=== PATIENT | male | born 1980 | race Two or more races ===

== ENCOUNTER 2017-08-31 15:09 | Emergency (ER) | payer OTHER ==
[2017-08-31] MEDS ORDERED: ACETAMINOPHEN 325 MG TABLET PO ONE (15:18)
[2017-08-31] MEDS ORDERED: MORPHINE SULFATE 10 MG/ML INJ IV ONE (15:39)
--- NOTE | 2017-08-31 15:44 | RADIOLOGY REPORT (SQ) ---
EXAM DESCRIPTION: KNEE LEFT 2 VIEWS COMPLETED DATE/TIME: 08/31/2017 3:35 pm REASON FOR STUDY: positive deformity COMPARISON: None. NUMBER OF VIEWS: Two views. TECHNIQUE: AP and lateral radiographic images acquired of the left knee. LIMITATIONS: None. FINDINGS: MINERALIZATION: Normal. BONES: No acute fracture or dislocation. No worrisome bone lesions. JOINT: No effusion. SOFT TISSUES: No soft tissue swelling. No radio-opaque foreign body. OTHER: No other significant finding. IMPRESSION: NEGATIVE STUDY OF THE LEFT KNEE. NO RADIOGRAPHIC EVIDENCE OF ACUTE INJURY. TECHNICAL DOCUMENTATION: JOB ID: [id number] [employer]- All Rights Reserved Reading location - IP/workstation name: [email or web address]
[2017-08-31] MEDS ORDERED: HYDROMORPHONE HCL INJ/PF 2 MG/ML AMPULE IV ONE (15:46)
--- NOTE | 2017-08-31 15:47 | RADIOLOGY REPORT (SQ) ---
EXAM DESCRIPTION: ANKLE LEFT COMPLETE COMPLETED DATE/TIME: 08/31/2017 3:35 pm REASON FOR STUDY: positive deformity COMPARISON: None. NUMBER OF VIEWS: Three views. TECHNIQUE: AP, lateral, and oblique radiographic images acquired of the left ankle. LIMITATIONS: None. FINDINGS: MINERALIZATION: Normal. BONES: There is a displaced fracture of the distal fibula above the level of the tibiotalar joint spa ce. Sequela of old trauma about the medial malleolus. JOINTS: There is marked widening of the medial tibiotalar clear space as well as subjective widening of the superior tibiotalar joint space. SOFT TISSUES: Soft tissue swelling about the medial and lateral malleolus. OTHER: No other significant finding. IMPRESSION: Jay C fracture of the distal fibula with marked widening of the medial tibiotalar con r space TECHNICAL DOCUMENTATION: JOB ID: [id number] [employer]- All Rights Reserved Reading location - IP/workstation name: [email or web address]
--- NOTE | 2017-08-31 15:52 | ER Document Report ---
ED Extremity Problem, Lower - General Mode of Arrival: Wheelchair Information source: Patient TRAVEL OUTSIDE OF THE [place] IN LAST 30 DAYS: No <MARLENA BALDWIN - Last Filed: 08/31/17 21:40> <JOSE DE JESUS PADRON - Last Filed: 08/31/17 23:35> - General Chief Complaint: Ankle Injury Stated Complaint: LT FOOT INJURY Time Seen by Provider: 08/31/17 15:31 Notes: Patient is a 36-year-old male who presents to the emergency department today with complaints of left ankle pain. Patient states he was playing soccer and he attempted to "stop the ball with his foot" and he lost his balance falling backwards with his leg caught behind him, eventually sitting on his ankle. Patient has been unable to bear weight on the ankle secondary to pain. (MARLENA BALDWIN) - Related Data Allergies/Adverse Reactions: No Known Allergies Allergy (Unverified 08/31/17 15:12) Past Medical History - General Information source: Patient - Social History Smoking Status: Never Smoker Cigarette use (# per day): No Frequency of alcohol use: None Drug Abuse: None Lives with: Family Family History: Reviewed & Not Pertinent - Medical History Medical History: Negative Surgical Hx: Negative <MARLENA BALDWIN - Last Filed: 08/31/17 21:40> Review of Systems - Review of Systems Constitutional: No symptoms reported EENT: No symptoms reported Cardiovascular: No symptoms reported Respiratory: No symptoms reported Gastrointestinal: No symptoms reported Genitourinary: No symptoms reported Male Genitourinary: No symptoms reported Musculoskeletal: See HPI, Joint pain - left ankle pain, Joint swelling, Deformity Skin: No symptoms reported Hematologic/Lymphatic: No symptoms reported Neurological/Psychological: No symptoms reported -: Yes All other systems reviewed and negative <MARLENA BALDWIN - Last Filed: 08/31/17 21:40> Physical Exam <MARLENA BALDWIN - Last Filed: 08/31/17 21:40> <JOSE DE JESUS PADRON - Last Filed: 08/31/17 23:35> - Vital signs Vitals: Temp Pulse Resp BP Pulse Ox 97.6 F 94 20 120/94 H 100 08/31/17 15:15 08/31/17 15:15 08/31/17 15:15 08/31/17 15:15 08/31/17 15:15 - Notes Notes: PHYSICAL EXAM GENERAL: Alert, interacts well. No acute distress. HEAD: Normocephalic, atraumatic. EYES: Pupils equal, round, and reactive to light. Extraocular movements intact. Mallampati score of 2. ENT: Oral mucosa moist, tongue midline. NECK: Full range of motion. Supple. Trachea midline. LUNGS: Clear to auscultation bilaterally, no wheezes, rales, or rhonchi. No respiratory distress. HEART: Regular rate and rhythm. No murmurs, gallops, or rubs. ABDOMEN: Soft, non-distended. EXTREMITIES: Left foot is cool to the touch, swollen, purple and ecchymotic. Left ankle is tender with palpation. 2+ dorsalis pedis pulses distally, normal sensation distally. NEUROLOGICAL: Alert and oriented x3. Normal speech. PSYCH: Normal affect, normal mood. SKIN: See extremity exam (MARLENA BALDWIN) Course <MARLENA BALDWIN - Last Filed: 08/31/17 21:40> <JOSE DE JESUS PADRON - Last Filed: 08/31/17 23:35> - Re-evaluation Re-evalutation: 08/31/17 18:49 Knee x-rays negative for acute fracture, ankle x-ray shows Jay C fracture of the distal fibula with marked widening of the medial tibiotalar clear space. Prior to reduction the left ankle was still swollen but is now warm, red, well perfused, no evidence of cyanosis. I did attempt to reduce this, there was some reduction but not complete reduction, they were placed in a stirrup splint and a posterior short leg splint , discussed with Dr. Bernal who states that this is an unstable fracture that will need surgery. Recommended making sure there is no tenting of the skin ( there is not) and have him follow-up with the patient first thing Friday morning. Patient is aware of this plan, will be given prescription for Percocet to take until he can see the orthopedic surgeon. Discharged home. 08/31/17 23:34 (JOSE DE JESUS PADRON) - Vital Signs Vital signs: Temp Pulse Resp BP Pulse Ox 97.6 F 76 14 119/75 100 08/31/17 15:15 08/31/17 17:00 08/31/17 19:00 08/31/17 18:31 08/31/17 19:00 Procedures - Conscious Sedation Conscious sedation Time started: 16:44 Time completed: 16:59 Consent obtained: Yes Indication: Left ankle fracture Last meal: 12:00 Prior complications: General anesthesia - Woke up during nose surgery. Pt with a mild systemic disease.: P2. - ASA Classification. Airway Evaluation: Normal anatomy Mallampati Classification: Class 2 Used during procedure: Suction available, IV access obtained, Pulse ox on pt., awake overnight monitor on pt. Medications administered: Diprivan Reversal agents: None I personally performed/intraservice time: Sedation, Procedure, 30 min or less Complications: No - Immobilization Left Ankle Pre-Proc Neuro Vasc Exam: Normal Immobilizer type: Ankle stirrup, Short Leg Posterior Performed by: Provider, PCT Post-Proc Neuro Vasc Exam: Normal, Unchanged from pre-exam Alignment checked and good: No - Alignment checked, interval reduction but not perfect. - Joint Reduction/Fracture Care Left Ankle Time completed: 16:59 Consent obtained: Yes Conscious sedation: Yes Pre-procedure NV exam: Yes Fracture: Closed Manipulation comment: Placed in stirrup and short leg posterior splint, Post-procedure NV exam: Yes - Fracture partially reduced but not completely. Reduction attempts: 1 Complications: No <JOSE DE JESUS PADRON - Last Filed: 08/31/17 23:35> Discharge <MARLENA BALDWIN - Last Filed: 08/31/17 21:40> <JOSE DE JESUS PADRON - Last Filed: 08/31/17 23:35> - Discharge Clinical Impression: Closed fracture of left distal fibula Qualifiers: Encounter type: initial encounter Fracture morphology: unspecified fracture morphology Qualified Code(s): S82.832A - Other fracture of upper and lower end of left fibula, initial encounter for closed fracture Condition: Stable Disposition: HOME, SELF-CARE Additional Instructions: Your left ankle is broken, specifically you have broken your left distal fibula. This fracture is unstable, it will likely need surgery. Please call Dr. Bernal's office first thing Friday in the morning, he says he will see you first thing Friday. Do not eat prior to going to his office. Stop eating at midnight. If your toes lose or change color, you lose feeling in your toes or the pain worsen significantly please loosen the splint, if this does not improve her symptoms please return to the emergency department. Prescriptions: Oxycodone HCl/Acetaminophen [Percocet 5-325 mg Tablet] 1 - 2 tab PO Q4H PRN #25 tablet PRN Reason: Referrals: ALINA BERNAL MD [ACTIVE STAFF] - 09/02/17 8:00 am Scribe Attestation: 08/31/17 23:35 I personally performed the services described in the documentation, reviewed and edited the documentation which was dictated to the scribe in my presence, and it accurately records my words and actions. (JOSE DE JESUS PADRON) Scribe Documentation - Scribe Written by Jatinder:: Jatinder Cancino, [id number] acting as scribe for :: Chriss <MARLENA BALDWIN - Last Filed: 08/31/17 21:40>
[2017-08-31] MEDS ORDERED: PROPOFOL INJ 200 MG/20 ML VIAL IV ONE (15:58)
[2017-08-31] MEDS ORDERED: ONDANSETRON HCL INJ/PF 4 MG/2 ML SDV IV ONE (17:32)
--- NOTE | 2017-08-31 17:39 | RADIOLOGY REPORT (SQ) ---
EXAM DESCRIPTION: ANKLE LEFT COMPLETE COMPLETED DATE/TIME: 08/31/2017 5:16 pm REASON FOR STUDY: post-reduction COMPARISON: 08/31/2017 NUMBER OF VIEWS: Three views. TECHNIQUE: AP, lateral, and oblique radiographic images acquired of the left ankle. LIMITATIONS: None. FINDINGS: MINERALIZATION: Normal. BONES: Again noted is the distal fibular fracture. There is been some interval reduction. Mild late ral and posterior displacement of distal fracture fragments is still present. The markedly widened m edial tibiotalar clear space is unchanged. JOINTS: Limited evaluation secondary to overlying casting material. SOFT TISSUES: Persistent soft tissue swelling about the medial and lateral malleolus. OTHER: No other significant finding. IMPRESSION: Interval reduction and casting of the distal left fibular fracture. TECHNICAL DOCUMENTATION: JOB ID: [id number] [employer]- All Rights Reserved Reading location - IP/workstation name: [email or web address]
[2017-08-31 18:42] VITALS: BP 119/75
[2017-08-31] MEDS ORDERED: OXYCODONE-ACETAMINOPHEN 5-325 MG TABLET PO ONE (18:44)
== END 2017-08-31 19:28 | disposition home or self-care (01) ==
LOC: ER 15:09
PROC: 2W3RX1Z Immobilization of Left Lower Leg using Splint (ICD-10-PCS; principal; 2017-08-31)
DX: S82.832A Other fracture of upper and lower end of left fibula, initial encounter for closed fracture (principal); W21.02XA Struck by soccer ball, initial encounter; Y93.66 Activity, soccer
CPT/HCPCS: 99283; 99152; 96374; 96375; 73610; 73560; 29515; J1170; J2405